=== PATIENT | male | born 1995 | race Two or more races ===

== ENCOUNTER 2023-11-17 09:54 | Emergency (ER) | payer OTHER ==
[~2023-11-17] VITALS: Ht 177.8 cm; Wt 149.7 kg
[2023-11-17] MEDS ORDERED: PEPCID AC20 MG PO (10:07)
== END 2023-11-17 11:14 | disposition home or self-care (01) ==
LOC: ER 09:55
DX: J00 Acute nasopharyngitis [common cold] (principal); Z20.822 Contact with and (suspected) exposure to COVID-19

== ENCOUNTER 2024-08-20 21:07 | Emergency (ER) | payer OTHER ==
[~2024-08-20] VITALS: Ht 177.8 cm; Wt 154.2 kg
[~2024-08-20 21:07] MED LIST: PEPCID AC20 MG PO
[2024-08-20] MEDS ORDERED: CEFTRIAXONE SODIUM 2,000 MG VIAL IV ONE (23:15)
[2024-08-20] MEDS ORDERED: ACETAMINOPHEN 500 MG GEL..CAP PO ONE (23:15)
== END 2024-08-21 02:10 | disposition home or self-care (01) ==
LOC: ER 21:09
DX: R53.81 Other malaise (principal); J03.90 Acute tonsillitis, unspecified